=== PATIENT | male | born 1945 | race Caucasian/White ===

== ENCOUNTER 2022-10-11 07:34 | Day surgery (SDC) | payer MEDICARE, OTHER ==
[~2022-10-11] VITALS: Ht 165.1 cm; Wt 131.8 kg
[2022-10-11] MEDS ORDERED: PROPOFOL 1% 20 ML VIAL IVP ONE (07:35)
[2022-10-11] MEDS ORDERED: LIDOCAINE/PF 2% 5 ML VIAL IM ONE (07:35)
[2022-10-11] MEDS ORDERED: GLYCOPYRROLATE 0.2 MG/ML VIAL IM ONE (07:35)
[2022-10-11] MEDS ORDERED: SODIUM CHLORIDE 0.9% 1,000 ML IV ONE (08:30)
[2022-10-11] MEDS ORDERED: FURO20 PO (09:07)
[2022-10-11] MEDS ORDERED: CARV25 PO (09:07)
[2022-10-11] MEDS ORDERED: ASPI-1450 PO (09:07)
[2022-10-11] MEDS ORDERED: FOLI-130 PO (09:07)
[2022-10-11] MEDS ORDERED: ATOR40TA28 PO (09:07)
[2022-10-11] MEDS ORDERED: TAMS-13 PO (09:07)
[2022-10-11] MEDS ORDERED: LISI-892 PO (09:07)
== END 2022-10-11 12:30 | disposition home or self-care (01) ==
LOC: SURGERY 07:34
PROVIDERS: ATTEND Internal Medicine Gastroenterology
DX: Z12.11 Encounter for screening for malignant neoplasm of colon (principal); I25.10 Atherosclerotic heart disease of native coronary artery without angina pectoris; K57.30 Diverticulosis of large intestine without perforation or abscess without bleeding; D12.4 Benign neoplasm of descending colon; D12.5 Benign neoplasm of sigmoid colon; E66.01 Morbid (severe) obesity due to excess calories; Z98.890 Other specified postprocedural states; Z79.82 Long term (current) use of aspirin; Z85.038 Personal history of other malignant neoplasm of large intestine; K64.9 Unspecified hemorrhoids
CPT/HCPCS: 45385; 88305; C1769; J2704; J3490 ×2